=== PATIENT | male | born 1970 | race African-American/Black ===

== ENCOUNTER 2019-03-07 08:04 | Observation (INO) | payer OTHER ==
[~2019-03-07] VITALS: Ht 195.6 cm; Wt 138.8 kg
[2019-03-07] VITALS (7 sets, daily range): BP systolic 129–145; BP diastolic 71–103
[2019-03-07] MEDS ORDERED: ASPIRIN 81 MG CHEW TAB PO ONE ×2 (08:30→09:00)
--- NOTE | 2019-03-07 08:42 | NUR ---
UPDATED PLAN OF CARE. VSS.
[2019-03-07] MEDS ORDERED: MORPHINE SULFATE INJ 4 MG/ML INJ 1ML ONE (08:43)
[2019-03-07] MEDS ORDERED: MORPHINE SULFATE 5 MG/ML VIAL IV ONE (08:45)
[2019-03-07] MEDS: ASPIRIN 81 MG ENTERIC COATED PO SCH (08:59)
[2019-03-07] MEDS ORDERED: MORPHINE SULFATE 2 MG/ML SYR 1ML IV PRN (09:00)
[2019-03-07] MEDS ORDERED: NITROGLYCERIN 0.4 MG SUBL SL PRN (09:00)
[2019-03-07] MEDS ORDERED: SODIUM CHLORIDE FLUSH 10 ML SYR INJ PRN (09:00)
[2019-03-07] MEDS ORDERED: ONDANSETRON HCL INJ 2MG/ML 2ML 2 MG/ML VIAL IV PRN (09:00)
[2019-03-07] MEDS ORDERED: HYDROCHLOROTHIA25 MG PO (09:15)
--- NOTE | 2019-03-07 09:18 | Diagnostic Imaging Report ---
EXAMINATION: CXR 2 VIEW - HOPD INDICATION: Left sided chest pain. COMPARISON: None FINDINGS: TUBES and LINES: None. LUNGS: Lungs are well inflated. There is no evidence of pneumonia or pulmonary edema. PLEURA: No pleural effusion or pneumothorax. HEART AND MEDIASTINUM: The cardiomediastinal silhouette is unremarkable. BONES AND SOFT TISSUES: No acute osseous lesion. Soft tissues are unremarkable. UPPER ABDOMEN: No free air under the diaphragm. IMPRESSION: No acute radiographic abnormality. Signed by: Dr. Maria De Jesus Trejo MD on 03/07/2019 9:15 AM
--- NOTE | 2019-03-07 10:00 | NUR ---
RECEIVED TO VIDYA MACIASOX3 NO DISTRESS NOTED, UPDATED ON POC VOICED UNDERSTANDING, TELEMETRY [address], DENIES CHEST PAIN AT THIS TIME, CALL LIGHT IN REACH WILL CONTINUE TO MONITOR
[2019-03-07] MEDS ORDERED: CLONIDINE HCL 0.1 MG TAB PO PRN (10:30)
[2019-03-07 10:46] LABS: CREATINE KINASE 346 IU/L (30-200)
[2019-03-07] MEDS: HYDROCHLOROTHIAZIDE 25 MG TAB PO SCH (11:36)
[2019-03-07] MEDS: NICOTINE 14 MG/EA PATCH TOP SCH (11:36)
[2019-03-07] MEDS ORDERED: KETOROLAC TROMETHAMINE 30 MG/ML VIAL IV ONE (15:00)
--- NOTE | 2019-03-07 18:46 | Consultation ---
DATE OF CONSULTATION: Cardiac Consultation REASON FOR CONSULTATION: Chest pain. HISTORY OF PRESENT ILLNESS: A 48-year-old gentleman, who is known with hypertension, on hydrochlorothiazide 25 mg a day. He is very active. 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 The longest drive is 1 hour, max 90 minutes. He is on active. He does not sit long. Today, he wakes up with chest pain, very vague in characteristic over under the left breast. He cannot describe it. It is not sharp. It is not pleuritic. It is not pressure. It is very vague. He came to the emergency room. He had first set of cardiac enzyme normal. His chest x-ray is normal. His EKG showed no acute changes. The patient definitely is a smoker, which is a risk factor as well as 2 of his brothers, they at age 45 and 50 from myocardial infarction. Both of them were heavy smoker. The patient is relatively active at his level of activity. He does have easy fatigability and some shortness of breath class early 3 max. There is sleep apnea. There is no orthopnea. No paroxysmal nocturnal dyspnea. There is no syncope or presyncope. There is no palpitation. There is no recent trauma. Although the patient sometime he hold heavy load. REVIEW OF SYSTEMS: GENERAL: No fever. No chills. HEENT: No vision problem. No hearing problem. PULMONARY: No cough. No hemoptysis. No pleuritic component. CARDIAC: As per history and physical. GI: No hematemesis. No melena. : No hematuria. No dysuria. MUSCULOSKELETAL: Occasional knee pain. NEUROLOGICAL: No seizure activity. No localized weakness. EXTREMITIES: No swelling. No edema. No tenderness. SKIN: No skin rashes. HEMATOLOGY: Easy bruising, but no bleeding. SOCIAL HISTORY: He is . He is smoker. He is hazmat cdl a driver. He is not alcohol drinker. HOME MEDICATIONS: Hydrochlorothiazide. ALLERGIES: NONE. PAST MEDICAL HISTORY: 1. Hypertension. 2. Smoker. 3. Positive family history of coronary artery disease. 4. Sleep apnea by description. 5. Knees pain at times. FAMILY HISTORY: Father at age 83, he had myocardial infarction and CVA in his late 60s. Mother doing well in her 80s. Three brothers, he lost 2 brothers to myocardial infarction at age 45 and 50, both of them were heavy smoker. Two healthy sisters. Three children, 1 son and 2 daughters. PHYSICAL EXAMINATION: VITAL SIGNS: Height of 6 feet 5 inches, weight of 206 pounds, blood pressure 130/80, heart rate of 80, respiratory rate of 18, and afebrile. HEENT: Pupils are equal and reactive. NECK: No elevation of jugular venous pulsation. No bruit. CHEST: Clear to auscultation and percussion. HEART: PMI 5th left intercostal space. Normal first and second heart sounds. ABDOMEN: Soft with good bowel sounds. EXTREMITIES: No cyanosis. No clubbing. No edema. No signs of deep venous thrombosis. NEUROLOGIC: No gross motor deficits, although there is no delay between pulses and no signs of deep venous thrombosis. SKIN: No rashes. LABORATORY DATA: Electrolytes showed creatinine at 1.4, sodium of 142, potassium 4.2, BUN of 12, and glucose of 98. White blood cell count of 5.6, hemoglobin of 155, hematocrit 47%, and platelet count of 485,000. EKG, no acute changes. Chest x-ray by report, no major abnormalities. IMPRESSION AND PLAN: 1. Chest pain, atypical. 2. Hypertension. 3. Smoker. 4. Positive family history of heart disease. 5. Degenerative joint disease of the knees. 6. Sleep apnea. 7. Obesity. Cardiac owens, I agree with serial cardiac enzymes. We will look at his echocardiogram. Differential diagnoses are discussed. Cardiac stress test to be done tomorrow providing his enzymes are negative. MD JEANNA Peralta/ANA /[id number]
--- NOTE | 2019-03-07 18:57 | NUR ---
Received report from previous nurse. Patient in bed. Call light within reach. at the bedside
[2019-03-07 19:15] LABS: CREATINE KINASE MB 4.8 ng/mL (0-5.0)
--- NOTE | 2019-03-07 20:11 | History and Physical ---
PRIMARY CARE PHYSICIAN: Unique, was seeing Dr. Ying. CHIEF COMPLAINT: Chest pain. HISTORY OF PRESENT ILLNESS: This is a 48-year-old male with past medical history of hypertension, presented to the freestanding ER with complaints of chest pain that started early this morning at 6:30 while sitting in a chair watching TV. Reports the pain is sharp, associated with shortness of breath and left arm numbness. He denies any nausea, vomiting, fever, chills, abdominal pain, radiating pain, dizziness, or palpitations. In the ER, he was given aspirin x1, which he said eases pain. Admitted for ACS workup. PAST MEDICAL HISTORY: Hypertension. PAST SURGICAL HISTORY: None. FAMILY MEDICAL HISTORY: Mother has high blood pressure. Father has heart attack at age of 65. He also has 2 brothers, who of a heart attack at age of 45 and 50. SOCIAL HISTORY: He denies any alcohol or illicit drug use, but reports smoking half-a-pack of cigarettes a day. ALLERGIES: NO KNOWN ALLERGIES. REVIEW OF SYSTEMS: GENERAL: No distress. HEENT: No trauma to mouth or head. NECK: Supple. LUNGS: Denies any shortness of breath or cough. CARDIOVASCULAR: Chest pain. GI: No nausea or vomiting. NEUROLOGIC: Alert and oriented. MUSCULOSKELETAL: Ambulatory. SKIN: Dry and intact. PHYSICAL EXAMINATION: VITAL SIGNS: Temperature 96.8, pulse is 82, respirations 20, blood pressure 137/84, and pulse ox 98% on room air. GENERAL: No acute distress. HEENT: Normocephalic and atraumatic. NECK: Supple and midline. LUNGS: Clear to auscultation. CARDIOVASCULAR: Normal rate and rhythm. GI: Soft and nontender. NEURO: Alert, awake, and oriented x3. MUSCULOSKELETAL: No edema. Moves all extremities. SKIN: Dry and intact. PSYCH: Normal affect. LABORATORY DATA: Sodium 142, potassium 4.2, BUN is 12, and creatinine 1.4. Troponin first set less than 0.05. WBC 5.6, hemoglobin 15.5, hematocrit 46.5, and platelets 199. EKG, normal sinus rhythm with no ST changes. IMPRESSION AND PLAN: 1. Chest pain rule out acute coronary syndrome. First set of cardiac enzymes have been negative. CK-MB slightly elevated at 5.60 and CK 346, was given morphine and aspirin in the ER. Chest x-ray is unremarkable. We will continue to monitor tele and trend troponins. We will check echocardiogram. 2. Acute kidney injury with creatinine of 1.4. We will continue to monitor. Denies any history of kidney disease. 3. Hypertension. We will resume home dose of hydrochlorothiazide. 4. Tobacco abuse. Smokes half-a-pack of cigarettes per day. Smoking cessation discussed. PLAN: We will continue to monitor on tele and trend troponins. Echocardiogram pending. Dictated by FANTASMA Rodriguez Rachellching Alo Kapadia MD MY/MODL /[id number]
[2019-03-08] VITALS: BP 131/82
[2019-03-08 03:08] LABS: BASOPHILS # (AUTO) 0.1 (0.0-0.1); BASOPHILS % 0.8 % (0.0-1.0); EOSINOPHILS # (AUTO) 0.2 (0.0-0.4); HEMATOCRIT 46.3 % (38.2-49.6); HEMOGLOBIN 15.4 g/dL (14.0-18.0); LYMPHOCYTES % 47.8 % (18.0-39.1); MEAN CORPUSCULAR HEMOGLOBIN 29.4 pg (28-32); MEAN CORPUSCULAR HGB CONC 33.3 g/dL (31-35); MEAN CORPUSCULAR VOLUME 88.5 fL (81-99); MONOCYTES # (AUTO) 0.7 (0.2-0.8); MONOCYTES % 10.4 % (4.4-11.3); NEUTROPHILS # (AUTO) 2.4 (2.1-6.9); NEUTROPHILS % 37.5 % (38.7-80.0); PLATELET COUNT 189 x10e3/uL (140-360); RED BLOOD COUNT 5.23 x10e6/uL (4.3-5.7); RED CELL DISTRIBUTION WIDTH 13.7 % (11.7-14.4)
[2019-03-08 04:00] VITALS: BP 130/80
[2019-03-08 04:57] LABS: ALANINE AMINOTRANSFERASE 26 IU/L (0-55); ALBUMIN 3.6 g/dL (3.5-5.0); ALBUMIN/GLOBULIN RATIO 1.3 (0.8-2.0); ALKALINE PHOSPHATASE 63 IU/L (40-150); BLOOD UREA NITROGEN 18 mg/dL (7-26); BUN/CREATININE RATIO 14 (6-25); CALCIUM 8.7 mg/dL (8.4-10.2); CARBON DIOXIDE 22 mmol/L (22-29); CHLORIDE 105 mmol/L (98-107); CREATININE, SERUM 1.29 mg/dL (0.72-1.25); EST GLOMERULAR FILTRATION RATE > 60 ML/MIN (60-); GLUCOSE 95 mg/dL (74-118); SODIUM 138 mmol/L (136-145)
[2019-03-08 05:17] LABS: THYROID STIMULATING HORMONE 1.492 uIU/mL (0.350-4.940)
[2019-03-08 05:39] LABS: BLOOD UREA NITROGEN 18 mg/dL (7-26); BUN/CREATININE RATIO 14 (6-25); CALCIUM 8.8 mg/dL (8.4-10.2); CARBON DIOXIDE 23 mmol/L (22-29); CHLORIDE 106 mmol/L (98-107); CHOL/HDL RATIO 4.3 (3.9-4.7); CHOLESTEROL 125 MD/DL (0-199); EST GLOMERULAR FILTRATION RATE > 60 ML/MIN (60-); GLUCOSE 93 mg/dL (74-118); HDL CHOLESTEROL 29 MG/DL (40-60); LDL CHOLESTEROL 76 MG/DL (60-130); SODIUM 140 mmol/L (136-145); TRIGLYCERIDES 98 MG/DL (0-149)
--- NOTE | 2019-03-08 06:57 | NUR ---
Gave report to oncoming nurse. Call light within reach. Patient in bed. at bedside
[2019-03-08 08:00] VITALS: BP 143/83
[2019-03-08] MEDS: HYDROCHLOROTHIAZIDE 25 MG TAB PO SCH (08:42)
[2019-03-08] MEDS: ASPIRIN 81 MG ENTERIC COATED PO SCH ×2 (08:42→09:00)
[2019-03-08] MEDS: NICOTINE 14 MG/EA PATCH TOP SCH (08:42)
[2019-03-08] MEDS ORDERED: HYDROCHLOROTHIAZIDE 25 MG TAB PO SCH (09:00)
[2019-03-08] MEDS ORDERED: NICOTINE 14 MG/EA PATCH TOP SCH (09:00)
[2019-03-08 09:06] VITALS: BP 143/83
[2019-03-08 12:00] VITALS: BP 143/89
[2019-03-08] MEDS ORDERED: METOPROLOL SUCC25 MG PO (13:14)
--- NOTE | 2019-03-08 18:06 | Electroencephalogram ---
DATE OF STUDY: 03/08/2019 REQUESTING PHYSICIAN: Cardiac Stress Test TECHNICAL DETAILS: The protocol is Anthony with target heart rate at 148 per minute. RESULTS: 1. The patient exercised for a total of 6 minute and 13 seconds. 2. Heart rate increased from 74 per minute to 155 per minute. 3. Blood pressure increased from 130/100 to 162/103. 4. No chest pain. 5. No EKG changes. IMPRESSION: Negative cardiac stress test. Limitation of a negative cardiac stress test are discussed and explained. MD JEANNA Peralta/MODL /[id number]
--- NOTE | 2019-03-08 22:02 | Discharge Summary ---
PCP: He was seeing Dr. Estrada at [facility], but plans to see Dr. Robel Wong. CHIEF COMPLAINT: Chest pain. FINAL DIAGNOSES: 1. Atypical chest pain, ruled out acute coronary syndrome. 2. Acute kidney injury. 3. Hypertension. 4. Tobacco use. CONSULTANTS: Dr. Johnny Biggs with Cardiology. PROCEDURES: Stress test was done, which was negative. HISTORY: Per HPI. HOSPITAL COURSE: Mr. Ho was admitted yesterday with complaints of chest pain, nonradiating. No nausea, vomiting, fever, chills, abdominal pain, dizziness, or palpitations. Due to his strong family history of heart disease, Cardiology was consulted. Troponin x3 were negative. Echocardiogram was done, which showed preliminary report with EF of around 40%. Blood pressure has been stable, stress test was negative for ACS. I will discontinue hydrochlorothiazide and start on metoprolol p.o. daily as he has GUILLERMO. PHYSICAL EXAMINATION: VITAL SIGNS: Temperature is 97.4, pulse is 85, respirations 16, blood pressure 143/89, pulse ox is 95% on room air. GENERAL: No acute distress. HEENT: Normocephalic, atraumatic. NECK: Supple and midline. CARDIOVASCULAR: Normal heart rate and rhythm. GI: Soft and nontender. NEURO: Alert, awake, and oriented x3. MUSCULOSKELETAL: No edema. Moves all extremities. SKIN: Dry and intact. LABORATORY DATA: WBC is 6.34, RBC 5.23, hemoglobin is 15.4, hematocrit is 46.3. Sodium is 138, potassium is 4.0, creatinine is 1.29, BUN is 18. Estimated GFR is greater than 60. Troponin X3 negative. Triglycerides 98, LDL 76, HDL 29. TSH is 1.492. CONDITION AT DISCHARGE: Improved and stable. DISCHARGE MEDICATIONS: See medication reconciliation list. FOLLOWUP: Follow up with PCP in 1 to 2 weeks. Dictated by FANTASMA Rodriguez Sarah Kapadia MD MY/MODL /[id number]
== END 2019-03-08 13:31 | disposition home or self-care (01) ==
LOC: FSED 08:04 → ERHOLD 08:48 → MED/SURG 09:48
PROVIDERS: ADMIT Internal Medicine; ATTEND Internal Medicine
DX: R07.89 Other chest pain (principal); N17.9 Acute kidney failure, unspecified; I10 Essential (primary) hypertension; F17.200 Nicotine dependence, unspecified, uncomplicated; G47.30 Sleep apnea, unspecified; M25.569 Pain in unspecified knee; Z82.49 Family history of ischemic heart disease and other diseases of the circulatory system
CPT/HCPCS: 36415 ×2; 71046; 80048; 80053 ×2; 80061; 82550 ×2; 82553 ×2; 84443; 84484 ×2; 85025 ×2; 85379; 93005; 93017; 93306; 99284; G0378 ×2; J1885; J2270 ×3; J2405

== ENCOUNTER 2021-05-17 18:17 | Emergency (ER) | payer OTHER ==
[~2021-05-17] VITALS: Ht 195.6 cm; Wt 138.8 kg
[~2021-05-17 18:17] MED LIST: HYDROCHLOROTHIA25 MG PO; METOPROLOL SUCC25 MG PO
[2021-05-17] MEDS ORDERED: ONDANSETRON HCL INJ 2MG/ML 2ML 2 MG/ML VIAL IV STA (19:33)
[2021-05-17] MEDS ORDERED: KETOROLAC TROMETHAMINE 30 MG/ML VIAL IV STA (19:35)
[2021-05-17] MEDS ORDERED: Morphine 4mg Syringe 4 MG/ML INJ IV ONE (19:45)
[2021-05-17] MEDS ORDERED: Morphine 4mg Syringe 4 MG/ML INJ ONE (20:26)
[2021-05-17] MEDS ORDERED: KETOROLAC TROMETHAMINE 30 MG/ML VIAL ONE (20:26)
[2021-05-17] MEDS ORDERED: ONDANSETRON HCL INJ 2MG/ML 2ML 2 MG/ML VIAL ONE (20:26)
[2021-05-17] MEDS ORDERED: SODIUM CHLORIDE 0.9% 250ML 250 ML ONE (20:27)
[2021-05-17] MEDS ORDERED: NAPROSYN500 MG PO (20:54)
[2021-05-17] MEDS ORDERED: CYCLOBENZAPRINE5 MG PO (20:54)
== END 2021-05-17 21:30 | disposition home or self-care (01) ==
LOC: FSED 19:34
DX: R10.12 Left upper quadrant pain (principal); I10 Essential (primary) hypertension; K21.9 Gastro-esophageal reflux disease without esophagitis
CPT/HCPCS: 71045; 74176; 80053; 81003; 82553; 84484; 85025; 99284; J1885; J2270; J2405; J7050

== ENCOUNTER 2022-01-29 17:54 | Emergency (ER) | payer OTHER ==
[~2022-01-29] VITALS: Ht 195.6 cm; Wt 161.1 kg
[~2022-01-29 17:54] MED LIST changes: +CYCLOBENZAPRINE5 MG PO; +NAPROSYN500 MG PO
[2022-01-29] MEDS ORDERED: KETOROLAC TROMETHAMINE 30 MG/ML VIAL IV STA (18:13)
[2022-01-29] MEDS ORDERED: HYDROCHLOROTHIA25 MG PO (18:42)
[2022-01-29] MEDS ORDERED: BENICAR20 MG PO (18:42)
[2022-01-29] MEDS ORDERED: OMEPRAZOLE40 MG PO (18:42)
[2022-01-29] MEDS ORDERED: AMLODIPINE BESYL5 MG PO (18:42)
[2022-01-29] MEDS ORDERED: KETOROLAC TROMETHAMINE 30 MG/ML VIAL ONE (18:49)
[2022-01-29] MEDS ORDERED: IBUPROFEN600 MG PO (20:00)
[2022-01-29] MEDS ORDERED: PEPCID20 MG PO (20:00)
== END 2022-01-29 20:15 | disposition home or self-care (01) ==
LOC: FSED 18:07
DX: R07.89 Other chest pain (principal); I10 Essential (primary) hypertension; K21.9 Gastro-esophageal reflux disease without esophagitis
CPT/HCPCS: 71045; 80053; 82553; 83880; 84484; 85025; 93005; 96374; 99284; J1885